=== PATIENT | male | born 1935 | race Caucasian/White ===

== ENCOUNTER 2018-12-21 09:16 | Observation (INO) | payer MEDICARE ==
[~2018-12-21] VITALS: Ht 175.3 cm; Wt 100.7 kg
[~2018-12-21 09:16] MED LIST: ASPIRIN EC81 MG PO; CIPRO XR500 MG PO; COREG6.25 MG PO; EQ ASPIRIN325 MG OR; FISH OIL1000 MG PO; HYDRALAZINE25 MG PO; LEXAPRO10 MG PO; LISINOPRIL20 M1 PO; NAPROSYN500 MG PO; NORVASC10 MG PO; PLAVIX75 MG PO; SAW PALMETTO160 M1 OR; SIMVASTATIN40 MG PO; VITAMIN B OR; VITAMIN C500 M1 OR; VITAMIN D1000 UNI1 OR; VITAMIN E100 UNI2 OR
[2018-12-21] MEDS ORDERED: WARFARIN1 MG PO (09:36)
[2018-12-21] MEDS ORDERED: PLAVIX75 MG PO (09:37)
[2018-12-21] MEDS ORDERED: SIMVASTATIN20 MG PO (09:40)
[2018-12-21 09:55] LABS: ANION GAP 14 (6-22 (CALC)); BUN 23 mg/dL (8-23); BUN/CREATININE RATIO 18 (12-20 (CALC)); CARBON DIOXIDE 24 mmol/l (22-30); CHLORIDE 107 mmol/l (95-108); CREATININE 1.3 mg/dL (0.7-1.3); GFR 52 ML/MIN (>=60 (CALC)); GFR FOR AFR.AMER. > 60 ML/MIN (>=60 (CALC)); POTASSIUM 4.1 mmol/l (3.5-5.1); SODIUM 141 mmol/l (137-146)
[2018-12-21 10:08] LABS: HEMOGLOBIN 13.9 g/dl (14.0-18.0); IMMATURE GRANULOCYTES 0.4 % (0.0-5.0); MEAN CELL VOLUME 96.6 fL CALC (80.0-100.0); MEAN CORPUSCULAR HGB 31.2 pG CALC (26.0-32.0); MEAN CORPUSCULAR HGB CONC 32.3 g/L CALC (32.0-36.0); NEUT# 7.37 thou/uL (1.82-7.42); RED BLOOD COUNT 4.45 mill/uL (4.70-6.10); RED CELL DISTRI WIDTH 13.5 % (11.5-15.5)
[2018-12-21 12:05] LABS: URINE BILIRUBIN - DIPSTICK NEGATIVE (NEGATIVE); URINE BLOOD DIPSTICK NEGATIVE (NEGATIVE); URINE COLOR YELLOW; URINE GLUCOSE - DIPSTICK NEGATIVE (NEGATIVE); URINE KETONE NEGATIVE (NEGATIVE); URINE LEUK ESTERASE NEGATIVE (NEGATIVE); URINE NITRITE - DIPSTICK NEGATIVE (Negative); URINE PROTEIN - DIPSTICK NEGATIVE (NEG-TRACE); URINE SPECIFIC GRAVITY 1.015; URINE UROBILINOGEN - DIPSTICK 0.2 E.U./dL (0.2)
[2018-12-21 14:09] VITALS: BP 136/63
[2018-12-21] MEDS ORDERED: HYDRALAZINE25 MG PO (16:03)
[2018-12-21] MEDS ORDERED: NORVASC5 M1 PO (16:04)
[2018-12-21] MEDS ORDERED: B COMPLE2 PO (16:08)
[2018-12-21] MEDS ORDERED: COQ10200 MG PO (16:09)
[2018-12-21 16:19] VITALS: BP 136/63
[2018-12-21 19:25] VITALS: BP 102/60
[2018-12-22] VITALS (8 sets, daily range): BP systolic 81–162; BP diastolic 44–72
[2018-12-22 05:01] LABS: HEMATOCRIT 38.5 % (39.0-50.0); HEMOGLOBIN 12.1 g/dl (14.0-18.0); IMMATURE GRANULOCYTES 0.3 % (0.0-5.0); MEAN CELL VOLUME 101.3 fL CALC (80.0-100.0); MEAN CORPUSCULAR HGB 31.8 pG CALC (26.0-32.0); MEAN CORPUSCULAR HGB CONC 31.4 g/L CALC (32.0-36.0); NEUT# 3.86 thou/uL (1.82-7.42); RED BLOOD COUNT 3.8 mill/uL (4.70-6.10); RED CELL DISTRI WIDTH 13.8 % (11.5-15.5)
[2018-12-22 05:21] LABS: ALBUMIN 2.9 g/dL (3.2-5.0); ALKALINE PHOSPHATASE 56 u/l (38-126); AMYLASE 30 u/l (30-110); ANION GAP 11 (6-22 (CALC)); BILIRUBIN, TOTAL 0.5 mg/dL (0.0-1.4); BUN 25 mg/dL (8-23); BUN/CREATININE RATIO 21 (12-20 (CALC)); CARBON DIOXIDE 25 mmol/l (22-30); CHLORIDE 107 mmol/l (95-108); CREATININE 1.2 mg/dL (0.7-1.3); GFR 58 ML/MIN (>=60 (CALC)); GFR FOR AFR.AMER. > 60 ML/MIN (>=60 (CALC)); LIPASE 101 u/l (23-300); POTASSIUM 4.3 mmol/l (3.5-5.1); SGOT/AST 13 u/l (19-48); SODIUM 139 mmol/l (137-146); TOTAL PROTEIN 5.3 g/dL (6.3-8.2)
[2018-12-23 03:15] VITALS: BP 1131/69
[2018-12-23 03:20] VITALS: BP 148/76
[2018-12-23 03:25] VITALS: BP 173/84
[2018-12-23 05:56] LABS: HEMATOCRIT 35.9 % (39.0-50.0); HEMOGLOBIN 11.6 g/dl (14.0-18.0); IMMATURE GRANULOCYTES 0.4 % (0.0-5.0); MEAN CELL VOLUME 98.1 fL CALC (80.0-100.0); MEAN CORPUSCULAR HGB 31.7 pG CALC (26.0-32.0); MEAN CORPUSCULAR HGB CONC 32.3 g/L CALC (32.0-36.0); NEUT# 3.05 thou/uL (1.82-7.42); RED BLOOD COUNT 3.66 mill/uL (4.70-6.10); RED CELL DISTRI WIDTH 13.2 % (11.5-15.5)
[2018-12-23 06:13] LABS: ANION GAP 12 (6-22 (CALC)); BUN 19 mg/dL (8-23); BUN/CREATININE RATIO 18 (12-20 (CALC)); CALCULATED LDLCHOLESTEROL 63 mg/dL (62-129 (CALC)); CARBON DIOXIDE 26 mmol/l (22-30); CHLORIDE 106 mmol/l (95-108); CREATININE 1.1 mg/dL (0.7-1.3); GFR > 60 ML/MIN (>=60 (CALC)); GFR FOR AFR.AMER. > 60 ML/MIN (>=60 (CALC)); HDL CHOLESTEROL 39 mg/dL (>=40); MAGNESIUM 1.9 mg/dL (1.6-2.3); POTASSIUM 4.5 mmol/l (3.5-5.1); SODIUM 140 mmol/l (137-146); TOTAL TRIGLYCERIDES 49 mg/dl (30-149); VLDL CHOLESTROL 10 mg/dl (0-38 (CALC))
[2018-12-23 06:15] LABS: CHOLESTEROL HDL RATIO 2.9 (<4.4 (CALC)); TOTAL CHOLESTEROL 112 mg/dl (0-199)
[2018-12-23 08:48] VITALS: BP 150/67
[2018-12-23 11:02] VITALS: BP 140/62
[2018-12-23] MEDS ORDERED: ELIQUIS2.5 MG PO (15:48)
== END 2018-12-23 16:14 | disposition home or self-care (01) ==
LOC: ED 09:16 → ED-I 11:28 → ED 12:20 → MS2 12:21
PROVIDERS: Family Medicine; Nurse Practitioner Family; ADMIT Internal Medicine Nephrology; ATTEND Internal Medicine Nephrology
DX: I48.92 Unspecified atrial flutter (principal); I48.91 Unspecified atrial fibrillation; I95.9 Hypotension, unspecified; I10 Essential (primary) hypertension; F32.9 Major depressive disorder, single episode, unspecified; E78.5 Hyperlipidemia, unspecified; K21.9 Gastro-esophageal reflux disease without esophagitis; Z79.02 Long term (current) use of antithrombotics/antiplatelets; Z86.73 Personal history of transient ischemic attack (TIA), and cerebral infarction without residual deficits; R55 Syncope and collapse
CPT/HCPCS: Q9967

== ENCOUNTER 2018-12-28 10:25 | Emergency (ER) | payer MEDICARE ==
[~2018-12-28] VITALS: Ht 175.3 cm; Wt 100.0 kg
[~2018-12-28 10:25] MED LIST changes: +B COMPLE2 PO; +COQ10200 MG PO; +ELIQUIS2.5 MG PO; +NORVASC5 M1 PO; +SIMVASTATIN20 MG PO; +WARFARIN1 MG PO
[2018-12-28 11:34] LABS: IMMATURE GRANULOCYTES 0.4 % (0.0-5.0); MEAN CELL VOLUME 95.5 fL CALC (80.0-100.0); MEAN CORPUSCULAR HGB 31.5 pG CALC (26.0-32.0); NEUT# 7.17 thou/uL (1.82-7.42); RED BLOOD COUNT 4.64 mill/uL (4.70-6.10); RED CELL DISTRI WIDTH 13.4 % (11.5-15.5)
[2018-12-28 11:35] LABS: URINE BLOOD DIPSTICK NEGATIVE (NEGATIVE); URINE GLUCOSE - DIPSTICK NEGATIVE (NEGATIVE); URINE KETONE 15 mg/dL (NEGATIVE); URINE LEUK ESTERASE NEGATIVE (NEGATIVE); URINE PROTEIN - DIPSTICK 30 mg/dL (NEG-TRACE); URINE SPECIFIC GRAVITY >=1.030
[2018-12-28 11:36] LABS: HEMATOCRIT 44.3 % (39.0-50.0); HEMOGLOBIN 14.6 g/dl (14.0-18.0)
[2018-12-28 11:36] LABS: URINE BILIRUBIN - DIPSTICK MODERATE (NEGATIVE); URINE COLOR DK. YELLOW; URINE NITRITE - DIPSTICK POSITIVE (Negative)
[2018-12-28 11:37] LABS: URINE BACTERIA MODERATE hpf; URINE EPITHELIAL CELLS MODERATE EPI/hpf (0-FEW); URINE MUCUS MODERATE hpf (NONE-FEW)
[2018-12-28 11:51] LABS: ALKALINE PHOSPHATASE 70 u/l (38-126); AMYLASE 77 u/l (30-110); ANION GAP 14 (6-22 (CALC)); BILIRUBIN, TOTAL 0.8 mg/dL (0.0-1.4); BUN 27 mg/dL (8-23); BUN/CREATININE RATIO 18 (12-20 (CALC)); CARBON DIOXIDE 23 mmol/l (22-30); CHLORIDE 107 mmol/l (95-108); CREATININE 1.5 mg/dL (0.7-1.3); GFR 44 ML/MIN (>=60 (CALC)); GFR FOR AFR.AMER. 54 ML/MIN (>=60 (CALC)); LIPASE 110 u/l (23-300); POTASSIUM 5.1 mmol/l (3.5-5.1); SODIUM 139 mmol/l (137-146)
[2018-12-28 11:55] LABS: ALBUMIN 4.1 g/dL (3.2-5.0); SGOT/AST 25 u/l (19-48); TOTAL PROTEIN 7.2 g/dL (6.3-8.2)
[2018-12-28 12:03] LABS: MYOGLOBIN 63 ng/mL (0 - 121)
[2018-12-28] MEDS ORDERED: MACROBID100 MG PO (12:24)
[2018-12-28 12:34] VITALS: BP 126/58
== END 2018-12-28 12:46 | disposition home or self-care (01) ==
LOC: ED 10:25
PROVIDERS: Emergency Medicine
DX: N39.0 Urinary tract infection, site not specified (principal); R53.1 Weakness; F17.220 Nicotine dependence, chewing tobacco, uncomplicated; I48.91 Unspecified atrial fibrillation

== ENCOUNTER 2020-12-03 17:07 | Inpatient (IN) | payer MEDICARE ==
[~2020-12-03] VITALS: Ht 182.9 cm; Wt 98.7 kg
[~2020-12-03 17:07] MED LIST changes: +MACROBID100 MG PO
--- NOTE | 2020-12-03 17:18 | NUR ---
TO ROOM VIA WHEELCHAIR
[2020-12-03] MEDS ORDERED: D32000 UNIT PO (17:54)
[2020-12-03] MEDS ORDERED: FLAXSEED OIL PO (17:55)
[2020-12-03] MEDS ORDERED: LISINOPRIL20 MG PO (17:56)
[2020-12-03] MEDS ORDERED: LUPRON DEPOT30 MG IM (17:56)
[2020-12-03] MEDS ORDERED: MULTI VIT PO (17:57)
[2020-12-03] MEDS ORDERED: RANOLAZINE ER500 MG PO (17:57)
[2020-12-03 17:58] LABS: IMMATURE GRANULOCYTES 2.1 % (0.0-5.0); MEAN CELL VOLUME 98.9 fL CALC (80.0-100.0); MEAN CORPUSCULAR HGB 30.4 pG CALC (26.0-32.0); MEAN CORPUSCULAR HGB CONC 30.7 g/dL CAL (32.0-36.0); NEUT# 4.5 thou/uL (1.82-7.42); RED BLOOD COUNT 3.69 mill/uL (4.70-6.10); RED CELL DISTRI WIDTH 14.9 % (11.5-15.5)
[2020-12-03] MEDS ORDERED: ZYTIGA250 MG PO (17:58)
[2020-12-03] MEDS ORDERED: B121000 MC1 PO (18:01)
[2020-12-03 18:04] LABS: PROTHROMBIN TIME 10.6 SECONDS (9.0-12.5)
[2020-12-03 18:05] LABS: HEMATOCRIT 36.5 % (39.0-50.0); HEMOGLOBIN 11.2 g/dl (14.0-18.0)
[2020-12-03 18:09] LABS: ALBUMIN 3.6 g/dL (3.2-5.0); ANION GAP 12 (6-22 (CALC)); BILIRUBIN, TOTAL 0.9 mg/dL (0.0-1.4); BUN 25 mg/dL (8-23); BUN/CREATININE RATIO 20 (12-20 (CALC)); CARBON DIOXIDE 25 mmol/l (22-30); CHLORIDE 105 mmol/l (95-108); CREATININE 1.3 mg/dL (0.7-1.3); GFR 52 ML/MIN (>=60 (CALC)); GFR FOR AFR.AMER. > 60 ML/MIN (>=60 (CALC)); POTASSIUM 4.3 mmol/l (3.5-5.1); SODIUM 138 mmol/l (137-146); TOTAL PROTEIN 6.4 g/dL (6.3-8.2)
[2020-12-03 18:11] LABS: ALKALINE PHOSPHATASE 147 u/l (38-126); SGOT/AST 49 u/l (19-48)
[2020-12-03 18:21] LABS: MYOGLOBIN 58 ng/mL (0 - 121)
[2020-12-03 18:27] LABS: D-DIMER 11.09 mg/L (0.19-0.60)
--- NOTE | 2020-12-03 18:27 | NUR ---
PT IS RESTING AT THIS TIME. TREATMENTS COMPLETED AND UPDATED ON PLAN OF CARE. PT CANNOT PROVIDE A URINE AT THIS TIME. CRACKLES HEARD IN BOTH MID TO LOWER LUNGS. PT AOX4. RR 25-30. DENIES ANY PAIN EXCEPT IN THE LEFT ANKLE. PITTING EDEMA OF 3+ IN LEFT LOWER LIMBS AND 1+ IN RIGHT LOWER LIMBS. WILL CONTINUE TO MONITOR
--- NOTE | 2020-12-03 18:53 | NUR ---
GAVE REPORT TO JEMIMA
--- NOTE | 2020-12-03 20:00 | NUR ---
RESTING QUIETLY AWAITING TEST RESULTS.
--- NOTE | 2020-12-03 21:00 | NUR ---
RESTING COMFORTABLY VSS NAD
--- NOTE | 2020-12-03 22:00 | NUR ---
NO SIGNIFICANT CHANGE NOTED. RESTING.
--- NOTE | 2020-12-03 23:00 | NUR ---
NO C/O. RESTING QUIETLY AWAITING TEST RESULTS.
--- NOTE | 2020-12-03 23:56 | NUR ---
UP TO BR WITH ASSIST
[2020-12-04] VITALS (8 sets, daily range): BP systolic 103–139; BP diastolic 45–79
--- NOTE | 2020-12-04 01:00 | NUR ---
NO CHANGES NOTED COMFORTABLE VSS
--- NOTE | 2020-12-04 02:00 | NUR ---
AWAITING U/S. NO PROBLEMS NOTED.
--- NOTE | 2020-12-04 03:00 | NUR ---
AWAITING ROOM ASSIGNMENT.
--- NOTE | 2020-12-04 03:40 | NUR ---
CALL RECEIVED FROM Heena CANNON FOR PLACEMENT OF PT, PT IS [facility]. ICU # 7 ASSIGNED AT THIS TIME.
--- NOTE | 2020-12-04 03:42 | NUR ---
FAXED SBAR RECEIEVED FROM ED. REVIEWED AT THIS TIME.
--- NOTE | 2020-12-04 03:54 | NUR ---
TELEPHONE REPORT RECEIVED FROM Sherron NUNO IN ED, ROOM #7 PREPARED TO RECEIVE PT.
--- NOTE | 2020-12-04 03:54 | NUR ---
PT ARRIVES TO UNIT AT 0354 VIA WHEELCHAIR ACCOMPANIED BY Sherron NUNO RN. ADMITTED TO ICU ROOM 7. AMBULATORY TO BED, GAIT STEADY AND BALANCED. PT ON 02 AT 4L/MIN VIA NC. SWITCHED TO WALL O2 FROM PORTABLE. PLACED ON CONT' CARDIAC MONITORING AND CON'T PULSE OX MONITORING AT THIS TIME. SPO2 94%. NIBP 139/54mmHg. AFIB WITH RATE 80'S-90'S. RESPIRATIONS SLIGHTLY LABORED AFTER EXERTION OF TRANSFER.
--- NOTE | 2020-12-04 04:00 | NUR ---
Admission Note Report Given to: SAMSON CARRION Transported by: X Wheelchair Stretcher Transported with: X Nurse Transporter X Patent IV X O2 X Metal Bench Patternmaker Location: X ICU MS2
--- NOTE | 2020-12-04 04:00 | NUR ---
BED SCALE WEIGHT 99.6 KG.
--- NOTE | 2020-12-04 04:02 | NUR ---
PT ARRIVES TO UNIT AT 0402 VIA WHEELCHAIR ACCOMPANIED BY Sherron NUNO RN. ADMITTED TO ICU ROOM 7. AMBULATORY TO BED, GAIT STEADY AND BALANCED. PT ON AT 4L/MIN VIA NC. SWITCHED TO WALL O2 FROM PORTABLE CANNISTER. PLACED ON CONT' CARDIAC MONITORING AND CON'T PULSE OX MONITORING AT THIS TIME. SPO2 94%. NIBP 139/54mmHg. AFIB WITH RATE 80'S-90'S. RESPIRATIONS SLIGHTLY LABORED AFTER EXERTION OF TRANSFER. TEMPORAL TEMP 96.9. BED SCALE WEIGHT 99.6 KG, NOTE BEDSCALE ZEROED PRIOR TO PT ARRIVAL.
--- NOTE | 2020-12-04 04:10 | NUR ---
ADMISSION AND PHYSICAL ASSESMENT COMPLETE. PT ORIENTED TO UNIT, ROOM, AND PLAN OF CARE. PT VERBALIZES UNDERSTANDING OF PROVIDED EDUCATION. PT REPORTS HE HAS NOT EATEN ALL NIGHT. HALF SANDWICH, JELLO CUP, APPLE JUICE, AND FRESH WATER PROVIDED. PT SITS SELF UP IN BED TO EAT. PT IS A/O X3, RESPIRATIONS REGULAR AND UNLABORED AT REST, SPO2 94%, AFIB ON MONITOR. LUNGS CLEAR AND DIMINISHED. DENIES GI SYMPTOMS. TOLERATING PROVIDED FOOD AND DRINK. +2 PITTING EDEMA TO LLE, RLE TRACE EDEMA. C/M/S INTACT TO ALL EXTREMITIES. R-AC 20 G IV PATENT, SALINE LOCKED. PT DENIES FURTHER NEEDS AT THIS TIME WHEN ASKED. CALL BOYCE WITHIN REACH, AGREES TO CALL PRN. BED LOCKED IN LOW POSITION WITH BEDRAILS UP X2.
--- NOTE | 2020-12-04 08:04 | NUR ---
PT IS SEEN AWAKE, ALERT, ORIENTED X 3. 4 LPM NC. PT EATING BREAKFAST AT THIS TIME, NO DISTRESS NOTED.
--- NOTE | 2020-12-04 12:07 | NUR ---
PT CONTINUES AT REST IN THE BED, NO DISTRESS. LUNGS CLEAR, REMAINS ON 4 LPM NC. NO REPORT OF SHORTNESS OF BREATH OR OTHERWISE.
--- NOTE | 2020-12-04 13:37 | NUR ---
PT SEEN BY DR MAN AT THIS TIME. DR MAN SPOKE WITH PT'S ONCOLOGIST NEAR ELSIE TO BETTER UNDERSTAND HIS CANCER. DR MAN INDICATES THAT PT MAY BE DISCHARGED TO HOME TOMORROW.
--- NOTE | 2020-12-04 15:30 | NUR ---
PT ARRIVED TO THE FLOOR FROM ICU IN A WHEEL CHAIR. AXOX3. PT WEIGHT 99.4kg . INTO BED WITH ASST. O2 2L. VS 139/[address] RESP 18 O2SATS 94% ON 2L. ORIENTED TO THE ROOM THE CALL SYSTEM BED AND TV. ASSESSMENT COMPLETE. DENIES PAIN AT THIS TIME. NO RESP DISTRESS NOTED. PT + FOR FLU A. REPOSITIOEND FOR COMFORT, SIDE RAILS UP CALL LIGHT IN REACH BED LOCKED IN LOW POSITION, ALL SAFTY MESURES IN PLACE. WILL CONTINUE TO MONIOTR THE PATIENT.
--- NOTE | 2020-12-04 15:32 | NUR ---
REPORT PROVIDED TO OBINNA BY PHONE, PT TO ROOM 262 SOON. PT AWARE OF PENDING TRANSFER TO MED/SURG.
--- NOTE | 2020-12-04 16:49 | NUR ---
PT VOIDING CLEAR STRAW COLORED URINE. AT THE BEDSIDE. NO COMPLAINTS VOICED AT THIS TIME.
--- NOTE | 2020-12-04 17:25 | NUR ---
O2 SATS 89% ON 2L. INCREASED TO 4L NC . O2 SATS 935. NO SOB NOTED WILL CONTINUE TO MONITOR THE PT.
--- NOTE | 2020-12-04 18:27 | NUR ---
INFORMED THE PT, HELLEN CANNON CALLED TO SAY HE IS ON HIS WAY.
--- NOTE | 2020-12-04 18:29 | NUR ---
PT RESTING COMFORTABLE IN THE BED, O2 IN PLACE, NO DISTRESS NOTED AT THIS TIME.
--- NOTE | 2020-12-04 21:00 | NUR ---
PT RESTING QUIETLY IN ROOM, NO COMPLAINTS VOICED AT THIS TIME. BREATHING EVEN AND UNLABORED. DENIES PAIN AT THIS TIME. ASSESSMENT COMPLATED WITH PT. WILL MONITOR.
[2020-12-05] VITALS (7 sets, daily range): BP systolic 112–145; BP diastolic 57–81
--- NOTE | 2020-12-05 00:38 | NUR ---
PT RESTING QUIETLY IN BED, NO COMPLAINTS VOICED AT THIS TIME. NO S/S OF PAIN/ANXIETY NOTED. BREATHING EVEN AND UNLABORED.
--- NOTE | 2020-12-05 04:33 | NUR ---
PT RESTING QUIETLY IN BED WITH EYES CLOSED AT THIS TIME. NO COMPLAINTS VOICED. BREATHING EVEN AND UNLABORED. DENIES PAIN AT THIS TIME.WILL MONITOR.
[2020-12-05 06:22] LABS: HEMATOCRIT 31.4 % (39.0-50.0); HEMOGLOBIN 9.8 g/dl (14.0-18.0); MEAN CELL VOLUME 99.7 fL CALC (80.0-100.0); MEAN CORPUSCULAR HGB 31.1 pG CALC (26.0-32.0); MEAN CORPUSCULAR HGB CONC 31.2 g/dL CAL (32.0-36.0); RED BLOOD COUNT 3.15 mill/uL (4.70-6.10); RED CELL DISTRI WIDTH 14.7 % (11.5-15.5)
[2020-12-05 06:35] LABS: ANION GAP 8 (6-22 (CALC)); BUN 20 mg/dL (8-23); BUN/CREATININE RATIO 18 (12-20 (CALC)); CARBON DIOXIDE 30 mmol/l (22-30); CHLORIDE 104 mmol/l (95-108); CREATININE 1.1 mg/dL (0.7-1.3); GFR > 60 ML/MIN (>=60 (CALC)); GFR FOR AFR.AMER. > 60 ML/MIN (>=60 (CALC)); MAGNESIUM 2.2 mg/dL (1.6-2.3); POTASSIUM 3.7 mmol/l (3.5-5.1); SODIUM 139 mmol/l (137-146)
--- NOTE | 2020-12-05 08:00 | NUR ---
PT RESTING IN THE BED, AXOX3, O22L NC. PT STATES HE IS FEELING BETTER TODAY THAN YESTERDAY. NOTED NO RESP DISTRESS AT THIS TIME. DENIES PAIN. REPOSITIOEND FOR COMFORT, SIDE RAILS UP CALL LIGHT IN REACH BED LOCKED IN LOW POSITION, WILL CONTINUE TO MONIOTR THE PATIENT.
--- NOTE | 2020-12-05 12:03 | NUR ---
PT SITTING UP ON THE SIDE ON THE BED EATING HIS LUNCH. NO DISTRESS NOTED AT THIS TIME.
--- NOTE | 2020-12-05 16:19 | NUR ---
PT RESTING COMFORTABLE IN THE BED, AT THE BEDSIDE. O2 TANK DELIVERED TO THE PT ROOM, READY FOR DISCHARGE TOMORROW. EDUCATED THE PT AND , WILL DEMONSTRAIGHT HOW TO TURN ON TANK TOMMORROW PRIOR TO DISCHAGRE.
--- NOTE | 2020-12-05 20:00 | NUR ---
PT ALERT AND ORIENTED LAYING IN BED. ASSESSMENT COMPLETE. NO COMPLAINT OF PAIN. DROPLET PRECAUTION REMAIN ON THE DOOR. OXYGEN CONTINUES AT 2-3 L. IV SALINE LOCK. TELE RUNNING A-FIB. CALL LIGHT AND TABLE WITHIN RANGE. WILL CONTINUE TO MONITOR
--- NOTE | 2020-12-06 | NUR ---
PT REMAINS SLEEPING PEACEFULLY. NO COMPLAINT OF PAIN. WILL CONTINUE TO MONITOR CALL LIGHT WITHIN RANGE
[2020-12-06 04:00] VITALS: BP 143/76
[2020-12-06 06:05] LABS: HEMATOCRIT 31.5 % (39.0-50.0); HEMOGLOBIN 9.8 g/dl (14.0-18.0); IMMATURE GRANULOCYTES 1.6 % (0.0-5.0); MEAN CELL VOLUME 97.5 fL CALC (80.0-100.0); MEAN CORPUSCULAR HGB 30.3 pG CALC (26.0-32.0); MEAN CORPUSCULAR HGB CONC 31.1 g/dL CAL (32.0-36.0); NEUT# 2.97 thou/uL (1.82-7.42); RED BLOOD COUNT 3.23 mill/uL (4.70-6.10); RED CELL DISTRI WIDTH 14.5 % (11.5-15.5)
[2020-12-06 06:33] LABS: ALKALINE PHOSPHATASE 120 u/l (38-126); ANION GAP 9 (6-22 (CALC)); BILIRUBIN, TOTAL 0.8 mg/dL (0.0-1.4); BUN 18 mg/dL (8-23); BUN/CREATININE RATIO 16 (12-20 (CALC)); CARBON DIOXIDE 31 mmol/l (22-30); CHLORIDE 102 mmol/l (95-108); CREATININE 1.1 mg/dL (0.7-1.3); GFR > 60 ML/MIN (>=60 (CALC)); GFR FOR AFR.AMER. > 60 ML/MIN (>=60 (CALC)); POTASSIUM 3.4 mmol/l (3.5-5.1); SGOT/AST 48 u/l (19-48); SODIUM 138 mmol/l (137-146)
[2020-12-06 06:34] LABS: ALBUMIN 2.8 g/dL (3.2-5.0)
--- NOTE | 2020-12-06 06:53 | NUR ---
PT RESTING IN HIS ROOM WITH NO COMPLAINT OF PAIN OR RESPIRATRY DISTRESS. CALL LIGHT WITHIN RANGE WILL CONTINUE TO MONITOR
[2020-12-06 07:36] VITALS: BP 126/70
--- NOTE | 2020-12-06 08:02 | NUR ---
SHIFT CHANGE REPORT, PT AWAKE ALERT AND ORIENTED RESTING IN BED, O2 @ 2L VIA NC IN PLACE, TELE MONITOR IN PLACE, NO C/O DISCOMFORT AT THIS TIME, CALL BOYCE IN REACH.
[2020-12-06 11:12] VITALS: BP 144/73
[2020-12-06] MEDS ORDERED: LASIX20 MG PO (11:20)
[2020-12-06] MEDS ORDERED: TAM75CAP PO (11:21)
[2020-12-06] MEDS ORDERED: OXY1 (11:30)
[2020-12-06] MEDS ORDERED: ZPAK PO (11:33)
--- NOTE | 2020-12-06 13:03 | NUR ---
Discharge instructions given. Patient verbalizes understanding of same. Discharged in stable condition via Wheelchair to Home with spouse. All belongings sent with pt. TELE MOITOR REMOVED FROM PT AND PLACED ON NURSES STATION
== END 2020-12-06 12:58 | disposition home health service (06) | DRG 291 ==
LOC: ED 17:07 → ED-I 12-04 02:55 → ED 12-04 03:33 → ICU 12-04 03:34 → MS2 12-04 16:00
PROVIDERS: Emergency Medicine; Internal Medicine; Nurse Practitioner; ADMIT Internal Medicine; ATTEND Internal Medicine
DX: I11.0 Hypertensive heart disease with heart failure (principal); J10.00 Influenza due to other identified influenza virus with unspecified type of pneumonia; J96.90 Respiratory failure, unspecified, unspecified whether with hypoxia or hypercapnia; C78.00 Secondary malignant neoplasm of unspecified lung; C79.51 Secondary malignant neoplasm of bone; I50.23 Acute on chronic systolic (congestive) heart failure; C61 Malignant neoplasm of prostate; I48.91 Unspecified atrial fibrillation; I25.5 Ischemic cardiomyopathy; Z86.73 Personal history of transient ischemic attack (TIA), and cerebral infarction without residual deficits; Z79.01 Long term (current) use of anticoagulants; Z87.891 Personal history of nicotine dependence; Z20.822 Contact with and (suspected) exposure to COVID-19
CPT/HCPCS: J1956; Q9967